=== PATIENT | male | born 1965 ===

== ENCOUNTER 2017-03-08 10:07 | Emergency (ER) | payer OTHER ==
[2017-03-08 11:03] VITALS: BP 146/93; PULSE 112; RESP 18; TEMP 98.1; O2SAT 96; BMI 31.7
[2017-03-08] MEDS ORDERED: Amoxicillin-Clav 875-125 mg Tab PO STA (11:08)
--- NOTE | 2017-03-08 11:17 | C.PDOC ---
History Of Present Illness 51 y/o female presents to the ED for evaluation of a pustule to the left scalp and forehead region noted for the past week. Patient states she attempted to squeeze the area earlier this morning and now presents to the ED for further evaluation. She denies fever, chills, trauma/injury to the affected area. Time Seen by Provider: 03/08/17 11:05 Chief Complaint (Nursing): Abnormal Skin Integrity History Per: Patient History/Exam Limitations: no limitations Onset/Duration Of Symptoms: Hrs Current Symptoms Are (Timing): Still Present Location Of Injury: Left: Head (scalp/forehead region ) Quality Of Symptoms: Painful, Draining Additional History Per: Patient Past Medical History Reviewed: Historical Data, Nursing Documentation, Vital Signs Vital Signs: Last Vital Signs Temp 98.1 F 03/08/17 10:24 Pulse 112 H 03/08/17 10:24 Resp 18 03/08/17 11:24 BP 146/93 H 03/08/17 10:24 Pulse Ox 96 03/08/17 11:17 - Medical History PMH: Asthma, HTN Surgical History: No Surg Hx Family History: States: Unknown Family Hx - Social History Hx Alcohol Use: No Hx Substance Use: No - Immunization History Hx Tetanus Toxoid Vaccination: No Hx Influenza Vaccination: No Hx Pneumococcal Vaccination: No Review Of Systems Except As Marked, All Systems Reviewed And Found Negative. Constitutional: Negative for: Fever, Chills Skin: Positive for: Other (+pustule to left scalp/forehead region. ) Physical Exam - Physical Exam Appears: Non-toxic, No Acute Distress Skin: Warm, Dry, Other (2cm furuncle to left scalp/forehead with surrounding erythema. mild edema around left eye. no cellulitis ) Head: Atraumatic, Normacephalic Eye(s): bilateral: Normal Inspection, PERRL, EOMI Oral Mucosa: Moist Neck: Supple Extremity: Normal ROM, Capillary Refill (less than 2 seconds ) Neurological/Psych: Oriented x3, Normal Speech, Normal Cognition Gait: Steady ED Course And Treatment O2 Sat by Pulse Oximetry: 96 (on RA) Pulse Ox Interpretation: Normal Progress Note: Patient received Amoxicillin PO and Motrin PO. Medical Decision Making Medical Decision Making: L forehead furuncle, + mild surrounding cellulitis. no yanira-orbital cellulitis Disposition Doctor Will See Patient In The: Office Counseled Patient/Family Regarding: Studies Performed, Diagnosis - Disposition Referrals: [facility] at [facility] [Outside] Disposition: HOME/ ROUTINE Disposition Time: 11:11 Condition: GOOD Additional Instructions: Augmentin (basada en penicillina) 2 veces al nick por 5 tolentino. Regressa con [facility] (gratis) chester necessario Prescriptions: Amoxicillin/Clavulanate [Augmentin 875 MG-125 MG] 1 tab PO BID #9 tab Instructions: Furunculosis and Carbunculosis (ED) Forms: Work Excuse Print Language: IVORIAN - Clinical Impression Clinical Impression: Furuncle of scalp - Scribe Statement The provider has reviewed the documentation as recorded by the Scribe (Yodit Aguilar) Provider Attestation: All medical record entries made by the Scribe were at my direction and personally dictated by me. I have reviewed the chart and agree that the record accurately reflects my personal performance of the history, physical exam, medical decision making, and the department course for this patient. I have also personally directed, reviewed, and agree with the discharge instructions and disposition.
[2017-03-08] MEDS ORDERED: Amoxicillin-Clav 875-125 mg Tab PO ONE (11:19)
== END 2017-03-08 11:26 | disposition home or self-care (01) ==
LOC: C.ER 10:07
DX: L02.821 Furuncle of head [any part, except face] (principal)